=== PATIENT | female | born 1965 | race Caucasian/White ===

== ENCOUNTER 2018-03-01 15:19 | Outpatient (CLI) | payer BC | END 2018-03-01 15:20 | disposition home or self-care (01) | LOC: BICRAD 15:19 | PROVIDERS: ATTEND Obstetrics & Gynecology | DX: S29.9XXA Unspecified injury of thorax, initial encounter (principal); R07.81 Pleurodynia ==

== ENCOUNTER 2018-06-11 05:52 | Day surgery (SDC) | payer BC ==
[2018-06-03 15:36] VITALS: BMI 32.1
[2018-06-11] MEDS ORDERED: Lidocaine 1% w/Epinephrine 1:200K 30 ML VIAL ONE (06:50)
[2018-06-11] MEDS ORDERED: Midazolam HCl 2 mg/2 ml Vial ONE (06:57)
[2018-06-11] MEDS ORDERED: PROPOFOL 20 ML ONE (06:57)
[2018-06-11] MEDS ORDERED: Fentanyl 100 MCG/2 ML VIAL ONE (06:57)
[2018-06-11] MEDS ORDERED: CEFAZOLIN/Water 2 GM/20 ML SYRINGE ONE (07:14)
--- NOTE | 2018-06-11 08:58 | OP ---
DATE OF PROCEDURE: 06/11/2018 PREOPERATIVE DIAGNOSIS: Trigger thumb, left. POSTOPERATIVE DIAGNOSIS: Trigger thumb, left. SURGEON: El Bond M.D. ANESTHESIA: TIVA local. BLOOD LOSS: Minimal. SPECIMEN: None. DRAINS: None. COMPLICATIONS: None. NARRATIVE REPORT: The patient was taken to the operating room where general anesthesia was induced. Left arm was prepped and draped in the usual sterile fashion. After exsanguination, tourniquet was inflated to 250 mmHg. A transverse incision in the flexion crease. Dissection was carried down to t he tendon sheath under direct visualization, released the tendon sheath proximally and distally until I was sure that the thumb would flex and extend without any entrapment of the tendon. Tourniquet wa s released. Irrigation was performed. Hemostasis obtained. Skin was closed with 4-0 nylon. Steril e dressings applied.
[2018-06-11] MEDS ORDERED: PROPOFOL 200 MG/20 ML VIAL ONE (13:06)
== END 2018-06-11 09:23 | disposition home or self-care (01) ==
LOC: SDC 05:52
PROVIDERS: ATTEND Orthopaedic Surgery
PROC: 0LN70ZZ Release Right Hand Tendon, Open Approach (ICD-10-PCS; principal; 2018-06-11)
DX: M65.311 Trigger thumb, right thumb (principal); Z79.82 Long term (current) use of aspirin; Z79.899 Other long term (current) drug therapy; Z88.8 Allergy status to other drugs, medicaments and biological substances
CPT/HCPCS: J2250; J2704; J3010

== ENCOUNTER 2020-06-07 12:09 | Emergency (ER) | payer BC ==
[2020-06-07] MEDS ORDERED: Diazepam 5 MG TAB ONE (13:20)
[2020-06-07] MEDS ORDERED: Ibuprofen 800 MG TAB ONE (13:20)
== END 2020-06-07 14:01 | disposition home or self-care (01) ==
LOC: ERS 12:09
DX: S29.012A Strain of muscle and tendon of back wall of thorax, initial encounter (principal); F32.9 Major depressive disorder, single episode, unspecified; F17.210 Nicotine dependence, cigarettes, uncomplicated; Z79.82 Long term (current) use of aspirin; Z79.899 Other long term (current) drug therapy; X50.1XXA Overexertion from prolonged static or awkward postures, initial encounter
CPT/HCPCS: 99283

== ENCOUNTER 2021-03-29 06:41 | Outpatient (CLI) | payer BC ==
[2021-03-29 09:49] LABS: Hemoglobin 13.8 g/dL (12.0-15.5); Mean Corpuscular HGB CONC 32.2 g/dL (32.0-36.0); Mean Corpuscular Hemoglobin 27.5 pg (27.0-33.0); Mean Corpuscular Volume 85.5 fl (81.6-98.3); Mean Platelet Volume 10.5 fl (7.4-10.4); Platelet Count 244 10x3/uL (150-450); Red Blood Cell (RBC) Count 5.02 10x6/uL (3.90-5.03); White Blood Cell (WBC) Count 8.3 10x3/uL (3.5-10.5)
[2021-03-30 00:07] LABS: SARS-CoV-2 PCR by NAA Not Detected (NotDetected)
== END 2021-03-29 06:42 | disposition home or self-care (01) ==
LOC: LABBT 06:41
PROVIDERS: ATTEND Orthopaedic Surgery Sports Medicine
DX: Z01.818 Encounter for other preprocedural examination (principal); M75.02 Adhesive capsulitis of left shoulder; Z20.822 Contact with and (suspected) exposure to COVID-19
CPT/HCPCS: 85027; U0003; U0005

== ENCOUNTER 2021-04-03 10:22 | Day surgery (SDC) | payer BC ==
[2021-04-02 10:21] VITALS: BMI 34.4
[2021-04-03] MEDS ORDERED: Fentanyl 100 MCG/2 ML VIAL ONE ×2 (11:22→12:02)
[2021-04-03] MEDS ORDERED: Midazolam HCl 2 mg/2 ml Vial ONE (11:22)
[2021-04-03] MEDS ORDERED: Fentanyl 100 MCG/2 ML VIAL IV PRN (11:33)
[2021-04-03] MEDS ORDERED: Ondansetron PF 4 MG/2 ML Vial IVP PRN (11:45)
[2021-04-03] MEDS ORDERED: Ropivacaine 0.2% 550 ML 550 ML NERVE BLCK SCH (11:45)
[2021-04-03] MEDS ORDERED: Promethazine HCl 25 MG/ML VIAL IM PRN (11:45)
[2021-04-03] MEDS ORDERED: Zolpidem Tartrate 5 MG TAB PO PRN (11:45)
[2021-04-03] MEDS ORDERED: traMADol HCl 50 MG TAB PO PRN ×2 (11:45)
[2021-04-03] MEDS ORDERED: HYDROcodone/Acetaminophen 10/325 mg Tablet PO PRN ×2 (11:45)
[2021-04-03] MEDS ORDERED: EPINEPHrine 1 MG/ML AMP ONE (11:57)
[2021-04-03] MEDS ORDERED: Bupivacaine PF 0.5% 30 ML VIAL ONE (11:57)
[2021-04-03] MEDS ORDERED: Metoclopramide HCl 10 MG/2 ML VIAL ONE (12:33)
[2021-04-03] MEDS ORDERED: PROPOFOL 200 MG/20 ML VIAL ONE (12:33)
[2021-04-03] MEDS ORDERED: Ketorolac Tromethamine 30 MG/ML VIAL ONE (12:33)
[2021-04-03] MEDS ORDERED: Lidocaine 1% PF 5 ML VIAL ONE (12:33)
[2021-04-03] MEDS ORDERED: Ropivacaine 0.5% HCl/PF (150 MG/30 ML VIAL) ONE (12:33)
[2021-04-03] MEDS ORDERED: Rocuronium Bromide 10 MG/ML (10ML VIAL) ONE (12:33)
[2021-04-03] MEDS ORDERED: Ondansetron PF 4 MG/2 ML Vial ONE (12:33)
[2021-04-03] MEDS ORDERED: SUGAMMADEX SODIUM 200 MG/2 ML VIAL ONE (13:28)
== END 2021-04-03 15:40 | disposition home or self-care (01) ==
LOC: SDC 10:22
PROVIDERS: ATTEND Orthopaedic Surgery Sports Medicine
PROC: 0LS44ZZ Reposition Left Upper Arm Tendon, Percutaneous Endoscopic Approach (ICD-10-PCS; principal; 2021-04-03)
PROC: 0RBK4ZZ Excision of Left Shoulder Joint, Percutaneous Endoscopic Approach (ICD-10-PCS; principal; 2021-04-03)
PROC: 3E0T3BZ Introduction of Anesthetic Agent into Peripheral Nerves and Plexi, Percutaneous Approach (ICD-10-PCS; 2021-04-03)
DX: M75.02 Adhesive capsulitis of left shoulder (principal); S43.432A Superior glenoid labrum lesion of left shoulder, initial encounter; M75.102 Unspecified rotator cuff tear or rupture of left shoulder, not specified as traumatic; G89.18 Other acute postprocedural pain; Z87.891 Personal history of nicotine dependence; Z79.82 Long term (current) use of aspirin; Z79.899 Other long term (current) drug therapy; Z88.8 Allergy status to other drugs, medicaments and biological substances; X58.XXXA Exposure to other specified factors, initial encounter; Y93.68 Activity, volleyball (beach) (court)
CPT/HCPCS: A4306; C1713; J0171; J0690; J1885; J2250; J2405; J2704; J2765; J2795; J3010; S0020

== ENCOUNTER 2022-10-13 08:08 | Outpatient (CLI) | payer BC | END 2022-10-13 08:09 | disposition home or self-care (01) | LOC: CT 08:08 | PROVIDERS: ATTEND Family Medicine | DX: N23 Unspecified renal colic (principal); K80.20 Calculus of gallbladder without cholecystitis without obstruction | CPT/HCPCS: 74176 ==

== ENCOUNTER 2025-06-07 11:21 | Outpatient (CLI) | payer BC | END 2025-06-07 11:22 | disposition home or self-care (01) | LOC: SCSRAD 11:21 | PROVIDERS: ATTEND Family Medicine | DX: M54.31 Sciatica, right side (principal); M47.816 Spondylosis without myelopathy or radiculopathy, lumbar region; M16.11 Unilateral primary osteoarthritis, right hip | CPT/HCPCS: 72100 ==